=== PATIENT | male | born 1995 | race Caucasian/White ===

== ENCOUNTER 2021-07-07 17:33 | Emergency (ER) | payer BC ==
[~2021-07-07] VITALS: Ht 177.8 cm; Wt 92.2 kg
[2021-07-07] MEDS ORDERED: PANTOPRAZOLE SO40 MG PO (17:44)
[2021-07-07] MEDS ORDERED: VYVANSE40 MG PO (17:44)
[2021-07-07] MEDS ORDERED: ZYRTEC10 M3 PO (17:45)
[2021-07-07] MEDS ORDERED: SINGULAIR PO (17:45)
[2021-07-07 18:21] VITALS: BP 131/77
== END 2021-07-07 18:25 | disposition home or self-care (01) ==
LOC: ED 17:33
DX: R07.89 Other chest pain (principal); F90.9 Attention-deficit hyperactivity disorder, unspecified type; K21.9 Gastro-esophageal reflux disease without esophagitis; Z79.899 Other long term (current) drug therapy